=== PATIENT | male | born 1975 | race Caucasian/White ===

== ENCOUNTER 2019-03-07 06:20 | Day surgery (SDC) | payer BC ==
[~2019-03-07 06:20] MED LIST: Lactated Ringers 1,000 ML IV SCH
[2019-03-07] MEDS ORDERED: Lidocaine 2% 5 ML SDV ONE (06:53)
[2019-03-07] MEDS ORDERED: Ondansetron 4 MG/2 ML SDV ONE (06:53)
[2019-03-07] MEDS ORDERED: Midazolam 1 MG/ML 2 ML SDV ONE (06:54)
[2019-03-07] MEDS ORDERED: Propofol 200 MG/20 ML SDV ONE (06:54)
[2019-03-07] MEDS ORDERED: fentaNYL 250 MCG/5 ML SDV ONE (06:54)
--- NOTE | 2019-03-07 07:03 | PCM.PREANE ---
Preanesthetic Assessment - Anesthesia/Transfusion/Family Hx Anesthesia History: Prior Anesthesia Without Reaction Family History of Anesthesia Reaction: No Transfusion History: No Prior Transfusion(s) - Review of Systems General: No Symptoms Pulmonary: No Symptoms Cardiovascular: No Symptoms Gastrointestinal: No Symptoms Neurological: No Symptoms Other: Reports: None - Physical Assessment NPO Status Date: 03/06/19 Height: 5 ft 9 in Weight: 91.626 kg ASA Class: 3 Mental Status: Alert & Oriented x3 Airway Class: Mallampati = 1 Dentition: Reports: Normal Dentition Cardiovascular: Regular Rate, Regular Rhythm - Allergies Allergies/Adverse Reactions: Allergies Allergy/AdvReac Type Severity Reaction Status Date / Time No Known Allergies Allergy Verified 03/03/19 09:13 - Blood Blood Available: No - Anesthesia Plan Pre-Op Medication Ordered: None - Acknowledgements Anesthesia Type Planned: General Anesthesia Pt an Appropriate Candidate for the Planned Anesthesia: Yes Alternatives and Risks of Anesthesia Discussed w Pt/Guardian: Yes Pt/Guardian Understands and Agrees with Anesthesia Plan: Yes Additional Comments: PMH: new dx of htn, on lisinopril x 1 week. BP on arrival today= 159/93. 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, took prophylactic antibiotics for 9 months, had asthma as a child- no trouble recently Musculoskeletal History: Reports: Fracture Other Musculoskeletal History: hx of fx left arm, wrist and fingers Neurological History: Reports: Other (See Below) Other Neuro History: hx of motion sickness Dermatologic History: Reports: Psoriasis Other Dermatologic History: mostly on shins - Past Surgical History Head Surgeries/Procedures: Reports: None Musculoskeletal Surgical History: Reports: Arthroscopic Knee Other Musculoskeletal Surgeries/Procedures:: left knee arthroscopy x3 and left ACL repair x2 - SUBSTANCE USE Smoking Status *Q: Current Every Day Smoker Tobacco Use Within Last Twelve Months: Cigarettes Days Per Week of Alcohol Use: 7 Number of Drinks Per Day: 2 Total Drinks Per Week: 14 Recreational Drug Use History: No - HOME MEDS Home Medications: Home Meds Lisinopril 5 mg PO DAILY 03/03/19 [History] - CURRENT (IN HOUSE) MEDS Current Meds: Current Medications Hydrocodone Bitart/Acetaminophen ([place] 325-5 Mg) 1 - 2 tab PO Q4H PRN PRN Reason: Pain Cefazolin Sodium/Dextrose 2 gm (/ Premix) 50 mls @ 100 mls/hr IV ONCALL NAJMA Lactated Ringer's (Ringers, Lactated) 1,000 mls @ 100 mls/hr IV ASDIRECTED NAJMA Discontinued Medications Fentanyl (Sublimaze) Confirm Administered Dose 250 mcg .ROUTE .STK-MED ONE Stop: 03/07/19 06:55 Lidocaine (Xylocaine-Mpf 2%) Confirm Administered Dose 5 ml .ROUTE .STK-MED ONE Stop: 03/07/19 06:54 Midazolam HCl (Versed 1 Mg/Ml) Confirm Administered Dose 2 mg .ROUTE .STK-MED ONE Stop: 03/07/19 06:55 Ondansetron HCl (Zofran) Confirm Administered Dose 4 mg .ROUTE .STK-MED ONE Stop: 03/07/19 06:54 Propofol (Diprivan 20 Ml) Confirm Administered Dose 200 mg .ROUTE .STK-MED ONE Stop: 03/07/19 06:55
[2019-03-07] MEDS ORDERED: Lidocaine 1% 20 ML MDV ONE (07:54)
[2019-03-07] MEDS ORDERED: ceFAZolin 2 GM in Premix Bag 1 BAG IV SCH (08:00)
[2019-03-07] MEDS ORDERED: ceFAZolin 1 GM Vial ONE (08:13)
[2019-03-07] MEDS ORDERED: Sodium Chloride 0.9% 20 ML ONE (08:13)
[2019-03-07] MEDS ORDERED: ePHEDrine 50 MG/ML SDV ONE (08:18)
[2019-03-07] MEDS ORDERED: Ketorolac 30 MG/ML SDV ONE (08:23)
[2019-03-07] MEDS ORDERED: Albuterol 0.083% 2.5 MG/3 ML Neb Soln NEB PRN (08:23)
[2019-03-07] MEDS ORDERED: 50% Dextrose in Water 50 ML Syringe IVPUSH PRN (08:23)
[2019-03-07] MEDS ORDERED: Naloxone 0.4 MG/ML Syringe IVPUSH PRN (08:23)
[2019-03-07] MEDS ORDERED: EPINEPHrine 1:10,000 1 MG/10 ML Syringe IVPUSH PRN (08:23)
[2019-03-07] MEDS ORDERED: Atropine 0.1 MG/ML 10 ML Syringe IVPUSH PRN ×2 (08:23)
--- NOTE | 2019-03-07 08:40 | PCM.OPNOTE ---
- General Post-Op/Procedure Note Date of Surgery/Procedure: 03/07/19 Operative Procedure(s): L knee scope with PMM/PLM Post-Op Diagnosis: DJD left knee. left knee med/lat meniscus tear Anesthesia Technique: General LMA Primary Surgeon: Vanessa Dowell Transformer Inspector: Aliyah Landa EBRosaura in mLs: 5 Condition: Good Free Text/Narrative:: tt=15 min #[id number]
[2019-03-07] MEDS: fentaNYL 100 MCG/2 ML SDV IVPUSH PRN ×2 (08:59→09:10)
[2019-03-07] MEDS ORDERED: Acetaminophen/HYDROcodone 325-5 MG Tab PO PRN (09:00)
--- NOTE | 2019-03-07 10:42 | PCM.POSTAN ---
POST ANESTHESIA ASSESSMENT - MENTAL STATUS Mental Status: Alert, Oriented - RESPIRATORY Respiratory Status: Respiratory Rate WNL, Airway Patent, O2 Saturation Stable - CARDIOVASCULAR CV Status: Pulse Rate WNL, Blood Pressure Stable - GASTROINTESTINAL GI Status: No Symptoms - POST OP HYDRATION Hydration Status: Adequate & Stable
--- NOTE | 2019-03-07 10:43 | PCM48HPAN ---
Post Anesthesia Note - EVALUATION WITHIN 48HRS OF ANESTHETIC Vital Signs in Normal Range: Yes Patient Participated in Evaluation: Yes Respiratory Function Stable: Yes Airway Patent: Yes Cardiovascular Function Stable: Yes Hydration Status Stable: Yes Pain Control Satisfactory: Yes Nausea and Vomiting Control Satisfactory: Yes Mental Status Recovered: Yes Resp Rate: 17
--- NOTE | 2019-03-07 10:54 | OR ---
SURGEON: Vanessa Dowell MD DATE OF PROCEDURE: 03/07/2019 PREOPERATIVE DIAGNOSES: 1. Degenerative joint disease, left knee. 2. Left knee anterior cruciate ligament tear. 3. Left knee lateral meniscus tear. POSTOPERATIVE DIAGNOSES: 1. Degenerative joint disease, left knee. 2. Left knee anterior cruciate ligament tear. 3. Left knee lateral meniscus tear. 4. Left knee medial meniscus tear. PROCEDURE: Left knee arthroscopy with partial medial and lateral meniscectomy. PRIMARY SURGEON: Vanessa Dowell MD. EDUCATIONAL INSTITUTION CURATOR: KELLIE Dozier. ANESTHESIA: General. ESTIMATED BLOOD LOSS: 5 mL. TOURNIQUET TIME: 15 minutes. COMPLICATIONS: None. DVT PROPHYLAXIS: Not indicated. IMPLANTS USED: None. BRIEF HISTORY: Nolan is a 44-year-old male, who has had complaint of progressive left knee pain. He has previously undergone an ACL reconstruction along with a revision ACL reconstruction. He has noted increased pain recently. A repeat MRI did show tearing with extrusion of the lateral meniscus along with a re-tear of the anterior cruciate ligament. At that time, I discussed treatment options with the patient. I did recommend a left knee arthroscopy. Risks and goals of the procedure were discussed with the patient and were documented preoperatively. He agreed to proceed. DESCRIPTION OF PROCEDURE: The patient was properly identified and brought to the operating room. He was transferred from the OR cart and placed on the operating room table in a supine position. General anesthesia was administered. After adequate anesthesia was obtained, a well-padded tourniquet was applied to the left lower extremity. The left lower extremity was then prepped in standard fashion using ChloraPrep solution. It was then sterilely draped. A time-out was performed to ensure correct site and procedure. Preoperative antibiotics were given. The surgical site had been marked preoperatively. An Esmarch was used to exsanguinate the left lower extremity and the tourniquet was inflated to 250 mmHg. A lateral portal arthrotomy was established. Blunt trocar and cannula were introduced into the suprapatellar pouch. Camera, inflow, and outflow were assembled. Mild diffuse synovitis was noted within the joint. The patellofemoral joint was visualized. 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 The patella also showed grade 3 degenerative findings. The patella appeared to track centrally. There was abundant fat pad, which did cause some impingement with flexion and extension of the knee. I then extended down the lateral and medial gutter. No loose bodies were identified. Osteophyte formation was noted along the medial and lateral femoral condyle. I then entered the medial compartment. A medial portal arthrotomy was established. A blunt probe was inserted. He did have degenerative fraying along the medial and anterior horn of the meniscus. This was resected with a shaver. The remainder of the meniscus was intact. Diffuse grade 3 chondromalacia was noted along the medial tibial plateau. The medial femoral condyle showed diffuse grade 2 degenerative findings. I then entered the notch. A large osteophyte was noted along the tibial eminence. The ACL was torn. The notch was quite narrow from the osteophyte formation. The PCL appeared intact. I then entered the lateral compartment. Extensive degenerative tearing of the meniscus was noted. A shaver was used to resect this back to a stable remnant, however, little lateral meniscus remained. There was a large area of grade 4 chondromalacia along the posterior lateral aspect of the lateral tibial plateau. The lateral femoral condyle also showed diffuse grade 3 degenerative findings. I then re-entered the patellofemoral joint. A portion of the fat pad was resected and no further impingement was noted. Instruments were then removed from the knee. The portal sites were closed with 3-0 nylon. 1% lidocaine was injected along the portal tracts. Xeroform gauze was placed over the wound and a bulky dressing was applied. The tourniquet was then deflated. He was awakened from his anesthetic and transferred back to the operating room cart. He was brought to recovery room in stable condition. All needle and sponge counts were correct. MARILYN / NASIMA /[id number]
[2019-03-07 11:14] VITALS: BP 104/77
== END 2019-03-07 10:50 | disposition home or self-care (01) ==
LOC: MW.SDS 06:20
PROVIDERS: ATTEND Orthopaedic Surgery
DX: M23.301 Other meniscus derangements, unspecified lateral meniscus, left knee (principal); M23.312 Other meniscus derangements, anterior horn of medial meniscus, left knee; M23.332 Other meniscus derangements, other medial meniscus, left knee; M17.12 Unilateral primary osteoarthritis, left knee; M65.862 Other synovitis and tenosynovitis, left lower leg; M25.762 Osteophyte, left knee; M94.262 Chondromalacia, left knee; S83.512A Sprain of anterior cruciate ligament of left knee, initial encounter; I10 Essential (primary) hypertension; F17.210 Nicotine dependence, cigarettes, uncomplicated; X58.XXXA Exposure to other specified factors, initial encounter; Z79.899 Other long term (current) drug therapy; Z98.890 Other specified postprocedural states
CPT/HCPCS: 29880; 88304; A9270; J0690; J1885; J2001; J2250; J2405; J2704; J3010; J7120; 01400